=== PATIENT | male | born 1980 | race Caucasian/White ===

== ENCOUNTER 2021-09-23 08:40 | Emergency (ER) | payer MEDICAID, SELFPAY ==
[2021-09-23 08:48] VITALS: BP 138/90; PULSE 81; RESP 16; TEMP 36.8; O2SAT 98
--- NOTE | 2021-09-23 09:15 | DI.RAD_ITS ---
Exam(s) XR LUMBAR SPINE COMPLETE EXAM: XR LUMBAR SPINE COMPLETE CLINICAL HISTORY: Low back pain. TECHNIQUE: 2D digital imaging was performed. COMPARISON: No exams were available for comparison FINDINGS: Five views There is no evidence fracture listhesis. No pars defects. Mild disc space narrowing on the right si de of L4-5 level is noted Facet joints unremarkable. Sacroiliac joints unremarkable. No scoliosis. No osseous lesions and du ne density is normal. IMPRESSION: Subtle evidence of degenerative disc disease at L4-5 level. No facet arthropathy evident. Surgical clips are noted on the right side are possibly from prior appendectomy. DATA REPOSITORY: RADIATION DOSE DELIVERED:
--- NOTE | 2021-09-23 09:23 | W.ED.GENAD ---
Discharge Plan Disposition Patient Disposition: HOME Condition: Stable Discharge Details Clinical Impression: Strain of lumbar paraspinous muscle Primary Care Provider: Paige Ballard ED Provider: Julianna Baumann Home Meds and New Rx's Prescriptions: No Action acetaminophen 500 mg Tablet 1,000 mg PO Q6H PRN Discharge Instructions Instructions: Low Back Strain (ED) Additional Instructions: Take the Flexeril as directed. Up to 3 times daily as needed for muscle spasm this may make you sleepy. Alternate ice and heat. You can use lidocaine patches which you can obtain [id number]. Please take Tylenol or Ibuprofen with food every 4-6 hours as needed for pain and swelling. Follow up with primary care provider in 3-5 days to discuss possible MRI if needed. Return to ED sooner if any worsening loss of bowel or bladder, numbness tingling or concerns. Increase oral fluids. Stand Alone Forms: Work Release Referrals: Paige Ballard [Primary Care Provider] - 5 days Discharge Data Discharge Date/Time-TO BE ENTERED AT DEPARTURE: 09/23/21 11:06 Medical Decision Making 41-year-old male presents to the ER with a chief complaint of lower lumbar pain status post moving a large box yesterday. He reports that he felt a twinge. He denies any radiation of pain or numbness tingling into his lower extremities denies any saddle anesthesia. He does report previous lower back injury approximately 10 years ago denies any lumbar back surgeries. He did take a gram of Tylenol prior to arrival. Discussed x-ray results with patient. There are some degenerative changes at L4-L5. Patient denies any saddle anesthesia or red flags such as loss of bowel or bladder control. Discussed home care including ice, ibuprofen, muscle relaxers. Flexeril, lidocaine patch ordered. Patient remained in with stable condition throughout stay. Strict return instructions and follow-up care he verbalized standing given Flexeril tablets to go Prior to DC. This text was generated using [employer] system, please disregard any oddities of phrase or misspellings. Medical Records Medical records reviewed: Yes I reviewed the patient's medical records. Imaging Data Radiologic Study: Imaging: X-Ray Radiologist's impression: CLINICAL HISTORY: Low back pain. TECHNIQUE: 2D digital imaging was performed. COMPARISON: No exams were available for comparison FINDINGS: Five views There is no evidence fracture listhesis. No pars defects. Mild disc space narrowing on the right side of L4-5 level is noted Facet joints unremarkable. Sacroiliac joints unremarkable. No scoliosis. No osseous lesions and bone density is normal. IMPRESSION: Subtle evidence of degenerative disc disease at L4-5 level. No facet arthropathy evident. Surgical clips are noted on the right side are possibly from prior appendectomy. HPI General Mode of arrival: ambulatory. Date/Time Provider Initiated Documentation: 09/23/21 09:22. Limitations to Documentation: no limitations. Information obtained by: patient and RN notes reviewed. HPI Narrative: 41-year-old male presents to the ER with a chief complaint of lower lumbar pain status post moving a large box yesterday. He reports that he felt a twinge. He denies any radiation of pain or numbness tingling into his lower extremities denies any saddle anesthesia. He does report previous lower back injury approximately 10 years ago denies any lumbar back surgeries. He did take a gram of Tylenol prior to arrival. Related Data Home Medications Medication Instructions Recorded Confirmed acetaminophen 500 mg tablet 1,000 mg PO Q6H PRN 09/23/21 09/23/21 Allergies Allergy/AdvReac Type Severity Reaction Status Date / Time erythromycin base Allergy eye Unverified 09/23/21 08:51 [Erythromycin Base] irratition General Stated Complaint: Nk/Back Pain PAPITO: 4 Review of Systems All systems reviewed & are unremarkable except as noted in HPI and below Musculoskeletal Musculoskeletal: Reports as per HPI, Reports back pain, Denies deformity, Denies loss of height, Reports numbness, Denies radiating pain into limb, Reports stiffness and Denies tingling Integumentary/Breasts Skin/Breast: Reports other Neurologic Neurologic: Reports numbness and Denies tingling [facility] All Active Problems (Updated 09/23/21 @ 10:53 by Julianna Baumann) Strain of lumbar paraspinous muscle (Acute) Family History (Updated 09/24/21 @ 09:25 by Ellen Muller) Mother , 53 Alcohol use disorder Father No problems noted. Sister No problems noted. Brother No problems noted. Brother No problems noted. Brother No problems noted. Maternal Grandfather No problems noted. Paternal Grandfather No problems noted. Social History (Updated 09/24/21 @ 09:24 by Ellen Martinez Smoking/Tobacco Use Status: Never Second Hand Exposure: Yes Smoking risk assessment performed?: Yes Alcohol Intake: current Alcohol Intake frequency: a few times a month Alcohol type: beer and hard liquor Drug use: Rarely Substance use type: marijuana Caregiver/Support person: No Household members: spouse and children Communication Needs: None Do you need help understanding health information?: Rarely Pets and animals: Yes Pets and animals: cat(s) and dog(s) Sexually active: Yes Do you think of yourself as: straight/heterosexual Current gender identity: male What is your relationship status?: How often do you talk on the phone with friends or family?: once per week How often do you get together with friends or relatives?: once per week Do you belong to any clubs or organized social groups?: no Panel score (0-1 are the most socially isolated patients): 1 What type of physical activity do you participate in: walking and bicycling Duration: 30-45 minutes/day Frequency: 1-2 times per week Special paris needs: No Seatbelt use: always Helmet use: Yes Helmet use: always Drive intox 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 Appears stated age. Normal body habitus. Head: Normocephalic, no trauma. Chest: RRR, Normal S1, S2, distal pulses intact. Resp: Lungs clear to auscultation bilaterally, no wheezes, rales, or rhonchi. Abdomen: Soft, non-distended, Normoactive bowel sounds all 4 quads. Musculoskeletal: Stiff gait, 5/5 strength to all four extremities. Says have some bilateral lower lumbar paraspinous tenderness to palpation. Skin: No suspicious rashes or lesions. Capillary refill less than 2 sec. does have a birthmark noted to lower mid back. Neurologic: Cranial nerves II-XII intact. Alert and oriented x 3. Motor: No deficits noted. Sensory: Intact bilaterally all 4 extremities. Reflexes: DTR's intact bilaterally.. Hematologic/Lymphatic: No ecchymosis, no lymphadenopathy. Course Vital Signs Vital signs: Vital Signs Temperature 36.8 C 09/23/21 08:48 Pulse 81 09/23/21 08:48 Respiratory Rate 16 09/23/21 08:48 Blood Pressure 138/90 09/23/21 08:48 Pulse Oximetry 98 09/23/21 08:48 Temperature 36.8 C 09/23/21 08:48 Temperature Source Oral 09/23/21 08:48 Pulse 81 09/23/21 08:48 Respiratory Rate 16 09/23/21 08:48 Blood Pressure 138/90 09/23/21 08:48 Blood Pressure Position Sitting 09/23/21 08:48 Pulse Oximetry 98 09/23/21 08:48 Oxygen Delivery Method Room Air 09/23/21 08:48 Oxygen Flow Rate 0 09/23/21 08:48 Pain Level 7 09/23/21 08:48
[2021-09-23] MEDS: Cyclobenzaprine 10 MG TAB, 3 TABS/BTL PO (11:06)
[2021-09-23] MEDS: Ibuprofen 600 MG TAB PO (11:06)
[2021-09-23] MEDS: Lidocaine 5% Patch 1 PATCH TP (11:07)
== END 2021-09-23 11:06 | disposition home or self-care (01) ==
PROVIDERS: Emergency Provider Registered Nurse Emergency; PCP Nurse Practitioner Family
DX: S39.012A Strain of muscle, fascia and tendon of lower back, initial encounter (principal); X50.0XXA Overexertion from strenuous movement or load, initial encounter; Y99.0 Civilian activity done for income or pay
CPT/HCPCS: 99283; 72110

== ENCOUNTER 2022-07-30 03:42 | Outpatient (CLI) | payer MEDICAID, SELFPAY ==
[2022-07-30 13:00] LABS: ALT 40 U/L (16-63); AST 18 U/L (15-37); Albumin 4.1 g/dL (3.4-5.0); Alkaline Phosphatase 109 U/L (46-116); Anion Gap 6.1 mmol/L (3-11); BUN 21 mg/dL (7-18); Bilirubin, Total 0.4 mg/dL (0.2-1.0); CO2 29.9 mmol/L (21.0-32.0); CREATININE 0.9 mg/dL (0.70-1.30); Calcium 9.3 mg/dL (8.5-10.1); Calculated LDL 146 mg/dL (<100); Chloride 106 mmol/L (98-107); Cholesterol 210 mg/dL (<200); Estimated GFR 110.73 (mL/min/1.73m2); Glucose 111 mg/dL (74-106); HDL Cholesterol 35 mg/dL (40-60); Potassium 4.5 mmol/L (3.5-5.1); Sodium 142 mmol/L (136-145); Total Protein 7.4 g/dL (6.4-8.2); Triglyceride 145 mg/dL (<150)
== END 2022-07-30 03:43 | disposition home or self-care (01) ==
LOC: LOS 03:42
PROVIDERS: PCP Nurse Practitioner Family; Visit Provider Nurse Practitioner Family
DX: Z13.220 Encounter for screening for lipoid disorders (principal); Z00.00 Encounter for general adult medical examination without abnormal findings
CPT/HCPCS: 36415; 80053; 80061

== ENCOUNTER 2022-10-15 09:40 | Outpatient (CLI) | payer MEDICAID, SELFPAY ==
--- NOTE | 2022-10-15 12:26 | DI.RAD_ITS ---
Exam(s) XR KNEE LT 3V AP,LAT,CARLOS EXAM: XR KNEE LT 3V AP,LAT,CARLOS CLINICAL HISTORY: constant atraumatic painx 2 weeks M25.562 PAIN LEFT KNEE. TECHNIQUE: 2D digital imaging was performed. Three views. COMPARISON: No exams were available for comparison FINDINGS: BONES: No acute fracture is present. No bony destructive lesion is seen. JOINTS: The knee is normally aligned. No joint effusion is seen. SOFT TISSUE: Normal. IMPRESSION: Normal radiographs of the left knee. DATA REPOSITORY: RADIATION DOSE DELIVERED:
== END 2022-10-15 10:00 ==
LOC: DI 09:40
PROVIDERS: PCP Nurse Practitioner Family; Visit Provider Nurse Practitioner Family
DX: M25.562 Pain in left knee (principal)
CPT/HCPCS: 73562

== ENCOUNTER → 2023-05-11 09:01 | Outpatient (CLI) | payer MEDICAID, SELFPAY ==
--- NOTE | 2023-05-11 09:00 | DI.RAD_ITS ---
Exam(s) XR HIP LT COMPLETE AP PELVIS EXAM: XR HIP LT COMPLETE AP PELVIS CLINICAL HISTORY: left hip pain, M25.552. TECHNIQUE: 2D digital imaging was performed. COMPARISON: No exams were available for comparison FINDINGS: There is no evidence of pelvic nor hip fracture., there are findings in the left femoral head which a re suspicious for avascular necrosis/osteonecrosis. There is no loss of the head architecture at thi s time. No joint space narrowing in either hip. Right hip appears unremarkable. 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 Recommend follow-up hip MRI [facility] for confirmation and to determine if there is any suggestion of osteonecrosis of the opposite-rig ht hip (which is not seen on plain radiographs). DATA REPOSITORY: RADIATION DOSE DELIVERED:
== END ==
PROVIDERS: PCP Nurse Practitioner Family; Visit Provider Family Medicine
DX: M87.052 Idiopathic aseptic necrosis of left femur (principal)
CPT/HCPCS: 73502

== ENCOUNTER → 2023-05-12 10:40 | Outpatient (CLI) | payer MEDICAID, SELFPAY ==
--- NOTE | 2023-05-12 10:15 | DI.MRI_ITS ---
Exam(s) MR LOWER JOINT LT WO EXAM: MR LOWER JOINT LT WO CLINICAL HISTORY: avascular necrosis of hip on xray,M87.00 TECHNIQUE: Multiplanar multisequence MRI of Pelvis was performed COMPARISON: CR XR LUMBAR SPINE COMPLETE from 09/23/2021 CR XR HIP LT COMPLETE AP PELVIS from 05/11/2023 FINDINGS: Bones: There is an area of linear low signal extending through the superior aspect of the left femora l head. There is mild adjacent marrow edema. There is no evidence of collapse clear of the femoral head. Joints: A small joint effusion is present. The SI joints and symphysis pubis are unremarkable. Tarl ov cysts noted in lower sacrum.. Musculotendinous structures: Musculotendinous structures demonstrate no abnormality. Intrapelvic structures demonstrate no significant abnormality. IMPRESSION: Findings consistent with avascular necrosis of the left femoral head without collapse. DATA REPOSITORY:
== END ==
PROVIDERS: PCP Nurse Practitioner Family; Visit Provider Family Medicine
DX: M87.052 Idiopathic aseptic necrosis of left femur (principal)
CPT/HCPCS: 73721

== ENCOUNTER 2023-05-17 19:04 | Outpatient (CLI) | payer MEDICAID, SELFPAY ==
[2023-05-17 10:28] LABS: HCT 47.6 % (40.0-50.0); HGB 15.9 g/dL (13.5-17.5); MCH 30.1 pg (27.0-33.0); MCHC 33.4 % (32.0-36.0); MCV 90 fL (80-95); Platelet Count 242 10^3/uL (130-400); RBC 5.28 10^6/uL (4.36-5.78); WBC 8.26 10^3/uL (4.4-10.8)
[2023-05-17 10:42] LABS: Anion Gap 4.7 mmol/L (3-11); BUN 17 mg/dL (7-18); CO2 31.3 mmol/L (21.0-32.0); CREATININE 0.9 mg/dL (0.70-1.30); Calcium 9.3 mg/dL (8.5-10.1); Chloride 104 mmol/L (98-107); Estimated GFR 110.04 (mL/min/1.73m2); Glucose 111 mg/dL (74-106); Potassium 4.3 mmol/L (3.5-5.1); Sodium 140 mmol/L (136-145)
== END 2023-05-17 19:05 | disposition home or self-care (01) ==
LOC: LBO 19:04
PROVIDERS: PCP Nurse Practitioner Family; Visit Provider Student in an Organized Health Care Education/Training Program
DX: Z01.818 Encounter for other preprocedural examination
CPT/HCPCS: 36415; 80048; 85027

== ENCOUNTER 2023-05-19 08:31 | Day surgery (SDC) | payer MEDICAID, SELFPAY ==
[2023-05-19] VITALS (10 sets, daily range): BP systolic 126–189; BP diastolic 72–101; PULSE 43–65; RESP 14–18; TEMP 36.2–36.6; O2SAT 96–99; BMI 25.1
[2023-05-19] MEDS: Lactated Ringers 1,000 ML 80 ML IV (09:33)
[2023-05-19] MEDS: Acetaminophen 500 MG TAB 1000 MG PO ×2 (09:38→15:01)
[2023-05-19] MEDS: Celecoxib 200 MG CAP 400 MG PO (09:38)
--- NOTE | 2023-05-19 09:57 | ANES.PREOP_ITS ---
General Info Date of Service Date Performed: 05/19/23 Height: 5 ft 7 in Weight: 72.8 kg Body Mass Index (BMI): 25.1 Surgical Procedure: Operation Date: 05/19/23 11:05 Proposed Procedure Side Surgeon p Hip Total Hip Anterior Left Francisco Hicks MD Meds Allergies and Home Medications Allergies Allergy/AdvReac Type Severity Reaction Status Date / Time erythromycin base Allergy eye Verified 05/19/23 08:57 [Erythromycin Base] irratition Home Medication Medication Instructions Recorded acetaminophen 500 mg tablet 1,000 mg PO Q6H PRN 09/23/21 omeprazole 20 mg capsule,delayed 20 mg PO DAILY #90 caps 05/11/23 release Current Visit Medications: Current Medications Generic Name Dose Route Start Last Admin Trade Name Freq PRN Reason Stop Dose Admin Acetaminophen 1,000 mg 05/19/23 06:00 05/19/23 09:38 Acetaminophen 500 Mg Tab PO 05/19/23 16:00 1,000 mg PREOP JOSE M Administration Acetaminophen 1,000 mg 05/19/23 07:34 Acetaminophen 500 Mg Tab PO 06/18/23 07:33 TID PRN PRN Analgesia Celecoxib 400 mg 05/19/23 06:00 05/19/23 09:38 Celecoxib 200 Mg Cap PO 05/19/23 16:00 400 mg PREOP JOSE M Administration Docusate Sodium 100 mg 05/19/23 07:34 Docusate Sodium 100 Mg Cap PO 06/18/23 07:33 BID PRN PRN Constipation Tranexamic Acid 1,000 mg/ 60 mls @ 360 mls/hr 05/19/23 06:00 Sodium Chloride IV 05/19/23 16:00 PREOP JOSE M Ringer's Solution 1,000 mls @ 80 mls/hr 05/19/23 06:00 05/19/23 09:33 IV 05/19/23 23:59 80 mls/hr INFUSION JOSE M Administration Cefazolin Sodium/Dextrose 2 gm in 50 mls @ 100 mls/hr 05/19/23 06:00 Ancef Duplex IVPB 05/19/23 23:59 PREOP JOSE M IV Miscellaneous Supplies 1 each 05/19/23 06:00 Iv Access IV 05/19/23 23:59 DIRECTED JOSE M Ondansetron HCl 4 mg 05/19/23 07:34 Ondansetron 4 Mg/2 Ml Vial IVP 06/18/23 07:33 Q6H PRN PRN Nausea Oxycodone HCl 0 mg 05/19/23 07:34 Oxycodone 5 Mg Tab PO 06/18/23 07:33 Q3H PRN PRN Pain Polyethylene Glycol 17 gm 05/19/23 07:34 Polyethylene Glycol 3350 17 Gm Packet PO 06/18/23 07:33 BID PRN PRN Constipation Sodium Chloride 0 ml 05/19/23 06:00 Normal Saline Flush 10 Ml Syr IV 05/19/23 23:59 PRN PRN Sodium Chloride 0 ml 05/19/23 06:00 Normal Saline 10 Ml Vial IJ 05/19/23 23:59 DIRECTED PRN Sterile Water 0 ml 05/19/23 06:00 Water,Injection,Sterile 10 Ml Vial IJ 05/19/23 23:59 DIRECTED PRN PFSH Active Problems Active Problems: Problem Status Onset Code Avascular necrosis of bone of left hip M87.052 Left hip pain M25.552 Left knee pain M25.562 Acid reflux K21.9 Low back pain M54.50 Sebaceous cyst L72.3 Medical History Medical History Lumbar strain Depression Acute reaction to situational stress Acute left lumbar radiculopathy Tobacco Smoking/Tobacco Use Status: Never Passive smoking exposure: Yes Second hand exposure: Yes Alcohol Alcohol Intake: current Alcohol intake frequency: holidays/special occasions only Alcohol type: beer and hard liquor Substance Use Substance use: Daily Substance use type: marijuana Details: Marijuana smoker daily 20 plus years. Vital Signs and Lab Results Vital Signs Most Recent Vital Signs in EMR: Most Recent Vital Signs Temp Pulse Resp BP Pulse Ox 36.6 C 57 L 16 134/88 98 05/19/23 09:04 05/19/23 09:04 05/19/23 09:04 05/19/23 09:04 05/19/23 09:04 Lab Results Blood Type / Crossmatch: No Data to Display Complete Blood Count: White Blood Count 8.26 10^3/uL (4.4-10.8) 05/17/23 10:25 Red Blood Count 5.28 10^6/uL (4.36-5.78) 05/17/23 10:25 Hemoglobin 15.9 g/dL (13.5-17.5) 05/17/23 10:25 Hematocrit 47.6 % (40.0-50.0) 05/17/23 10:25 Platelet Count 242 10^3/uL (130-400) 05/17/23 10:25 Complete Metabolic Panel: Sodium 140 mmol/L (136-145) 05/17/23 10:25 Potassium 4.3 mmol/L (3.5-5.1) 05/17/23 10:25 Chloride 104 mmol/L (98-107) 05/17/23 10:25 Carbon Dioxide 31.3 mmol/L (21.0-32.0) 05/17/23 10:25 BUN 17 mg/dL (7-18) 05/17/23 10:25 Creatinine 0.9 mg/dL (0.70-1.30) 05/17/23 10:25 Est GFR (CKD-EPI 2020) 110.04 (mL/min/1.73m2) 05/17/23 10:25 Calcium 9.3 mg/dL (8.5-10.1) 05/17/23 10:25 Glucose 111 mg/dL (74-106) H 05/17/23 10:25 Liver Function Panel: No Data to Display Coagulation Panel: No Data to Display Cardiac Panel: No Data to Display Arterial Blood Gas: No Data to Display Venous Blood Gas: No Data to Display Pancreas Panel: No Data to Display Thyroid Panel: No Data to Display Infectious Disease: No Data to Display Blood Cultures: 2 No Data to Display Toxicology Panel: No Data to Display Imaging and Studies Imaging and Studies Study information below may be from another EMR and interpreted by another provider. Please see original notes in EMR for more complete details. Other Study Summary:: MRI and lumbar spine xray reviewed and results in chart Anesthesia Assessment and Plan Anesthesia History Personal History: No History of Anesthesia Complications Family History: No Family History of Anesthesia Complications Exercise Tolerance Exercise Tolerance: Metabolic Equivalents>4 Pertinent Negatives Pertinent Negatives: No Major Cardiovascular Symptoms or Complaints, No Major Pulmonary Symptoms or Complaints and No History of CVA/TIA Cardiac & Pulmonary Exam Cardiac Exam: Normal S1/S2 Heart Sounds Pulmonary Exam: Clear Bilateral Breath Sounds Implantable Cardiac Device Does patient have a Pacemaker or an ICD?: No Airway Exam Known Difficult Airway: No Mallampati Class: 3 Mouth Opening: Narrow (< 3cm) Thyromental Distance: Greater than 3 cm Neck Range of Motion: Full ROM Neck Circumference: Normal Teeth Condition: Generalized Poor Dentition (multiple missing teeth per pt and some rotten teeth per pt) ASA Classification ASA Score: ASA 2 Emergency Case?: No NPO Status NPO Status: NPO Clears >2 hours, Solids >8 hours Anesthesia Plan Resuscitation Status: Full Code Anesthesia Technique: Spinal Anesthesia Airway Planned: Natural Airway Monitors Used: Standard Monitors
--- NOTE | 2023-05-19 11:38 | W.PM.DSUDISC ---
Date of service: 05/19/23 Time of Service: 11:38 Discharge Plan Disposition Patient Disposition: Home Condition: Good Discharge Details Reason For Visit: L THR Attending Provider: Francisco Hicks Primary Care Provider: Babar Camacho Home Meds and New Rx's Prescriptions: New acetaminophen 500 mg tablet 1,000 mg PO TID Qty: 90 3RF aspirin 81 mg tablet,delayed release (DR/EC) 81 mg PO BID Qty: 60 0RF celecoxib 200 mg capsule 200 mg PO BID Qty: 60 0RF dexamethasone 4 mg tablet 4 mg PO DAILY Qty: 2 0RF oxycodone 5 mg tablet 5 mg PO Q4H MDD 6 tabs PRN (Reason: pain) Qty: 20 0RF Continued omeprazole 20 mg capsule,delayed release(DR/EC) 20 mg PO DAILY Qty: 90 1RF Discontinued acetaminophen 500 mg Tablet 1,000 mg PO Q6H PRN Discharge Instructions Additional Instructions: Total Hip Discharge Instructions Activity: The most important activity is to walk. You should try to take short walks a few times a day. You have no restrictions on movement or positioning, but do not try to force what you do. You will find some stiffness and weakness with hip flexion (lifting your knee). Do not try to strengthen this too early, continue to practice walking and stairs and this will come. - Outpatient physical therapy can be helpful to help return you to a normal gait and improve your flexibility and strength. This can start around 2 weeks. For some patients, it?s not necessary. Usually this is determined at the time of discharge or at the first post-operative visit. - You should wear the RUBY hose on both legs for 2 weeks. Dressing: Keep the surgical dressing in place for at least one week. After the first week it may be removed and replace with light gauze and tape or nothing. It may get wet after 3 days but avoid soaking the dressing. If it gets wet, just lightly pat dry. It is important to always keep some gauze between skin folds, especially when you are sitting. Spend some time with the wound exposed when you are lying flat as the incision does wrinkle onto itself. Medications: - You should take Tylenol and an anti-inflammatory Celebrex as your primary pain control medications. If the Celebrex is too expensive or not covered, please call the office for another alternative (Advil/Ibuprofen or Naproxen/Aleve). - You have been prescribed a stronger pain medication Oxycodone for breakthrough pain, take as needed as prescribed. - You will continue your omeprazole to help reduce stomach acid and reflux. - You have also been prescribed Decadron to help with post-operative nausea and pain. You will take this for two days starting tomorrow. - You will be taking [Aspirin 81mg twice a day] for DVT prevention unless instructed otherwise. - If you have constipation you should take Colace or Miralax (both [id number]). It takes most people 3-4 days to have a bowel movement. Follow-up: 2 weeks If you have any acute concerns or questions, please do not hesitate to contact the office at [phone]. You may contact Dr. Hicks with any questions after hours through the hospital at [phone] or on his cell phone at [phone]. Referrals: Francisco Hicks MD [ [facility] STAFF PHYSICIAN] - Equipment/Supplies: Walker Activity:: Activity as Tolerated Shower/Bathe:: 72 hours Diet:: As Tolerated DS: Diagnosis Discharge Diagnosis (1) Avascular necrosis of bone of left hip: Status: Acute
[2023-05-19] MEDS: ceFAZolin 2 GM/50 ML BAG IVPB (11:51)
--- NOTE | 2023-05-19 13:05 | DI.RAD_ITS ---
Exam(s) XR HIP LT IN OR EXAM: XR HIP LT IN OR CLINICAL HISTORY: AVASCULAR NECROSIS LEFT HIP. TECHNIQUE: 2D and realtime digital imaging was performed. COMPARISON: CR XR HIP LT COMPLETE AP PELVIS from 05/11/2023 FINDINGS: Hard copy image shows placement a left hip prosthesis. The alignment appears satisfactory. Please see procedure note for details. Fluoro time: 27.4seconds RADIATION DOSE DELIVERED: Ka,r=2.46 mGy
[2023-05-19] MEDS: fentaNYL 100 MCG/2 ML VIAL IVP (13:39)
--- NOTE | 2023-05-19 13:40 | W.PM.OP ---
Date of service: 05/19/23 Time of Service: 12:00 Operative Note Operative Note DATE OF PROCEDURE: 05/19/23 PRE-OP DIAGNOSIS: Left Hip Avascular Necrosis POST-OP DIAGNOSIS: same PROCEDURE: Left Anterior Total Hip Arthroplasty with Intraoperative Navigation SURGEON: Francisco Hicks [employer] PRO[employer] COORDINATOR: Tong Clemons ANESTHESIA TYPE: Spinal Refer to Anesthesia Record ESTIMATED BLOOD LOSS: 150 PATHOLOGY: none sent TOURNIQUET TIME: 0 COMPLICATIONS: None Patient was transported to: PACU Patient's condition: stable Implants: 1. Depuy Closter Acetabular Component, 56mm 2. Depuy Acetabular Liner, [id number] 3. Depuy Actis High Offset Collared Femoral Stem, Size 6 4. Depuy Altrx Ceramic Femoral Head, Size 36+5mm Indications: I have seen Bhaskar in clinic for symptoms of hip arthritis, confirmed with radiographic findings. He has exhausted nonoperative methods and was having significant limitations in daily function and desired better function and less pain. I discussed the technical details of a hip replacement. I explained the risks of the procedure to include, but not limited to, bleeding, infection, pain, stiffness, fracture, damage to nerves and vessels, damage to muscles and tendons, loosening, instability, leg length inequality, need for repeat procedure, blood clot and cardiopulmonary demise. Despite these risks, Bhaskar elected to proceed. Findings: Softened subchondral bone of the weight-bearing portion of the femoral head with dense scloerosis underlying it. Procedure Description: Bhaskar was greeted in the preoperative holding area where the correct side was identified and marked. The consent was reviewed with the patient and signed. The history and physical was updated. All questions were answered. He was taken back to the operating room. A spinal anesthestic was then administered. The feet were wrapped with cast padding and Coban and then placed into the boot liners and then into the boots. Care was taken to protect the skin and make sure the heels were fully down and the boots were stable. The patient was then positioned onto the HANA table. Both legs were held in a neutral position. SCDs were applied. The patient was then slid down onto a peroneal post. Prophylactic antibiotics in the form of Cefazolin were administered. 1g of Tranxemic Acid was given intravenously within 30 minutes of incision. The left leg was then prepped with Chloraprep and draped in a standard fashion. A second prep with Chloraprep was performed prior to placement of a shower-curtain type drape with Iodine impregnated skin protection. A timeout to confirm correct identity, side and site, procedure, allergies, anesthesia, and medical concerns was performed. An obliquely oriented incision was made starting lateral to the ASIS and running distal over the Tensor Fascia Angeles (TFL) muscle belly toward the fibular head, approximately 10cm. The skin and soft tissue was dissected sharply, through Vamshi?s fascia, and to the fascia of the TFL. With the fascia and superior border of the IT band identified, the fascia was incised with a new knife just above any perforators from the IT band. The TFL muscle belly was bluntly dissected away from the fascia and moved laterally. The fat between TFL and rectus was identified to ensure the dissection was not within the TFL. Blunt dissection created space between abductors and the capsule and retractor was placed over the lateral femoral neck. The fibers of the rectus femoris tendon were identified and these were freed from the anterior capsule. A second cobra retractor was placed around the medial femoral neck. The TFL was further retracted laterally to show the deep fascia. Careful dissection through this layer identified three main crossing vessels of the lateral femoral circumflex. These were cauterized in multiple locations and then cut without any noticeable bleeding. The TFL was further released bluntly from the deep fascia to expose anterior hip capsule and fat The Epi orthopaedic retractor was then placed beneath the TFL and against sartorius and medial soft tissues to protect and retract the soft tissues. A T-capsulotomy was then performed starting at the superior lateral acetabulum and moving distally to the intertrochanteric ridge. These capsular flaps were tagged with a No. 1 Ethibond and elevated from within. The capsular flaps were released to the shoulder of the lateral neck and to the lesser trochanter to give excellent visualization of the proximal femur. A neck osteotomy was performed using an oscillating saw based on preoperative templates. This cut started in the shoulder and of the lateral neck and exited medially. The saw was at all times directed medially to avoid injury to the greater trochanter. Gross traction was applied to the leg and the osteotomy opened. The femoral head was removed with a corkscrew, making sure to protect the TFL on its exit. Traction was released after head removal. This was measured on the back table to determine the starting reamer size. Portions of the rectus obscuring visualization were minimally elevated off the superior acetabulum. An anterior retractor was placed over the anterior wall between capsule and labrum and attached to the Gripper retraction system. The femur was rotated to 90 degrees and medial capsule was fully released until the lesser trochanter was palpable and visible; the femur was returned to 30 degrees. A posterior retractor was placed similarly between capsule and labrum. This provided excellent visualization. The contents of the cotyloid fossa were removed with electrocautery and the labrum was removed with a knife. Acetabular reaming began with a 48mm reamer. This first reaming was directed anterior to posterior and medial to get down to the true floor. This was inspected and reamed until the true floor was reached. The anterior retractor was then released and entry and exit was provided by traction on the capsular flaps. I then reamed sequentially up to a 56mm reamer where good fit was obtained. The larger reamers were oriented based on anatomical reference of the anterior and lateral temple to ensure proper abduction and anteversion. Positioning and size was confirmed with the fluoroscopy. A 56mm Depuy Closter acetabular component was selected. The acetabulum was reamed around the periphery with the selected acetabular size to prevent a rim fit. The deep tissues were irrigated. The acetabular component was then impacted in a position of about 40-45 degrees of abduction and 15-20 degrees of anteversion, using the patient?s anatomy as the ultimate landmark. Fluoroscopy was used to confirm this. There was excellent door manager of the acetabular component and the inserting handle was removed. The acetabular liner, Depuy [id number] polyethylene liner, was inserted and lined up with the tines of the acetabular component. There was no soft tissue interposition. The liner was then impacted into position and confirmed to be well-seated. A portion of the antonia-articular cocktail was then injected around the acetabulum into the capsule and periosteum. This cocktail consisted of 123mg of Ropivacaine, 0.25mg of Epinephrine, 0.04mg of Clonidine, and 15mg of Ketorolac, diluted to 50cc. The leg was rotated to 120 degrees. Any remaining medial capsule was released until the lesser trochanter was easily palpable. A retractor was placed medially. The lateral capsule was further released into the shoulder to allow access to the greater trochanter. A Eason retractor was placed over the greater trochanter which allowed the trochanter to flip in front of the capsule for excellent exposure. The leg was brought down into maximal extension and 20 degrees of adduction while ensuring there was no impingement on the acetabulum. Any remnant capsule within the trochanter was released. Piriformis and obturator externis were identified and protected. There was excellent access to the proximal femur. The lateral neck remnant was removed with a rongeur. A blunt canal probe was used to identify the canal and trajectory for later broaching. A box osteotome initiated the broach course. A small curved rasp and a curved curette were used to work laterally. Broaching then began with a starter Actis broach. This was inserted manually around the trochanter and into the canal before mallet blows. The broach was seated to a few millimeters below the cut level based on the neck cut and the preoperative template. Sequential broaching was continued with the Gnodal pneumatic broaching device until a tight fit was obtained with good rotational control of the femur. A trial standard neck was inserted along with a +5 trial head. The leg was brought out of extension and adduction and then reduced with traction and internal rotation. The leg was stable anteriorly in a position of 30 degrees of extension and 90 degrees of external rotation. Fluoroscopy was used to ensure there was no fracture and the stem was seated well. Leg lengths were checked with an AP pelvis and pelvic reference points. Ticket[employer]uit navigation system was used to confirm appropriate positioning and leg length and offset. Once content with the desired offset and leg lengths, the leg was brought back into extension, external rotation and adduction. The periosteum and surrounding tissue was injected with remaining portion of the antonia-articular cocktail. The proximal femur was irrigated as well as the deep tissues. The Depuy Actis High Offset collared stem, size 6, was then manually inserted into the proximal femur making sure to control rotation. It was then malleted into position with light blows, giving breaks to allow bone expansion and decrease risk of fracture. The selected Depuy Altrx Ceramic Head, size 36+5mm, was then placed onto the clean and dry trunnion and secured with impaction onto the tapered fit. The leg was brought back out of extension and adduction and reduced with traction and internal rotation. Stability was confirmed with no shuck at 90 degrees of external rotation and 30 degrees of extension. No impingement through range of motion arc. Final x-ray images were obtained with fluoroscopy to confirm adequate positioning and no intraoperative fracture. The deep tissues were thoroughly irrigated with Surgiphor, betadine solution. This was allowed to sit in the wound for 3 minutes before being thoroughly irrigated out with normal saline. The capsule was then reapproximated with the previously placed Ethibond sutures. The TFL fascia was finally closed with a No. 2 Stratafix, barbed suture. Deep tissues were then reapproximated with 0 Vicryl and a running 2-0 Vicryl. The skin was closed with a running 4-0 Monocryl in a subcuticular fashion. This was reinforced with skin glue. A Mepilex silver dressing was applied. At the end of the case, all counts were correct. Bhaskar was transferred to the hospital bed without difficulty and suffering no apparent complication. Bhaskar has a good prognosis. Physical therapy will start today and without restrictions, weight-bearing as tolerated. Aspirin 81mg BID will be used for DVT prophylaxis.
--- NOTE | 2023-05-19 14:50 | W.ANESPOSTOP ---
Postoperative Evaluation Date, Time and Location Date Performed: 05/19/23 Time Performed: 14:53 Patient Location: Day Surgery Unit Vital Signs Most Recent Imported Vital Signs: Most Recent Vital Signs Temp Pulse Resp BP Pulse Ox 36.6 C 50 L 18 162/96 H 99 05/19/23 14:26 05/19/23 14:26 05/19/23 14:26 05/19/23 14:26 05/19/23 14:26 Pain Score Most Recent Pain Score: Most Recent Pain Score Pain Level 5 05/19/23 14:26 Assessment Mental Status: Awake (Alert & Oriented to Patient Baseline) Airway and Respiratory Function: Patent airway with normal (patient baseline) respiratory exam Cardiovascular Function: Hemodynamically Stable Hydration Status: Adequately Hydrated Nausea & Vomiting: No Nausea or Vomiting Pain: Pt. Denies Any Pain Peripheral Nerve Block: Patient did not receive a nerve block
--- NOTE | 2023-05-19 15:00 | IN_ITS ---
PT Notes Visit Reasons: L THR Physical Therapy Day Surgery Initial Evaluation Date: 05/19/2023 Referring Doctor: AGUILAR Arndt PT Orders: PT CONSULT: S/p Ortho Surgery Precautions: WBAT on left LE with AD. 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 PMHX: All Active Problems (Updated 05/17/23 @ 13:05 by Francisco Hicks MD) Avascular necrosis of bone of left hip (Acute) Left hip pain (Acute) Left knee pain (Acute) Acid reflux (Chronic) Low back pain (Acute) Sebaceous cyst (Acute) Medical History Lumbar strain Depression Acute reaction to situational stress Acute left lumbar radiculopathy Social History/Home Situation: Lives with in a private home with 2 steps to enter without rails but patient can hold onto door frame and furniture for support on B sides. Independent with all aspects of ADLs prior to surgery almost although has had increasing difficulty with ADL performance due to pain and worsening left hip issue. Equipment Owned/DME: None Subjective: Reports 4/10 pain in the left hip at rest and with movement. Denies headache, chest pain, and lightheadedness throughout session. Objective: General Observation: Seated on bedside recliner. Mepilex Ag over surgical incision. TEDS to bed to be legs. present in room throughout session. Mental Status: A &O x 4 Pain: As above ROM: Right Lower Extremity: Hip flexion WFL. Hip abduction WFL. Knee flexion WFL. Ankle dorsiflexion WFL. Ankle plantarflexion WFL. Left Lower Extremity: Hip flexion WFL. Hip abduction WFL. Knee flexion WFL. Ankle dorsiflexion WFL. Ankle plantarflexion WFL. Strength: Right Lower Extremity: Hip flexors 5/5. Hip abductors 5/5. Knee flexors 5/5. Knee extensors 5/5. Ankle dorsiflexors 5/5. Ankle plantarflexors 5/5. Left Lower Extremity:Hip flexors 4-/5. Hip abductors 4-/5. Knee flexors 5/5. Knee extensors 4-/5. Ankle dorsiflexors 5/5. Ankle plantarflexors 5/5. Sensation: Intact as to pain and light pressure in BLE Bed Mobility/Transfers: Minimal cueing provided for use of B hands as needed for support, movement sequence, AD management, and posture to reduce fall risk and minimize pain report Sit to stand standby assist with FWW Stand to sit standby assist with FWW Bed to chair standby assist with FWW Gait: Facilitated safe and correct performance of level surface ambulation covering a distance of 150 feet using front wheeled walker with reciprocal step through heel-toe gait pattern requiring only standby assist and minimal cueing provided for movement sequence, AD management, and posture to reduce fall risk and minimize pain report. Stairs: Guided patient with safe and correct negotiation of 3 x 4 inch steps and 2 x 6 inch steps holding onto bilateral rails with step to gait pattern requiring standby assist only and minimal cueing provided for movement sequence, AD management, and posture to reduce fall risk and minimize pain report. Balance: Static Sitting: Normal Dynamic Sitting: Normal Static Standing: Fair Dynamic Standing: Fair Special Tests: Mobility Limitations Standardized Measure [facility] AM-PAC 6 clicks Basic Mobility Inpatient Short Form: Raw Score: 24 CMS Score: 0% Informed Consent/Education: Patient instructed in purpose of PT consult. Packet containing FLASH exercise protocol has been given to patient. Education and training on initial set of exercises that can be done at home have been completed with patient. Trained patient with correct performance of exercises below to maximize motor control, joint flexibility, soft tissue extensibility of the L hip musculature to facilitate return to independent functional mobility performance. Access Code: [email or web address] URL: [email or web address] Date: 05/19/2023 Prepared by: Jany Eid Exercises - Gluteal Sets - 1 x daily - 7 x weekly - 1 sets - 10 reps - 5 hold - Supine Heel Slide - 1 x daily - 7 x weekly - 1 sets - 10 reps - 5 hold - Supine Ankle Pumps - 1 x daily - 7 x weekly - 1 sets - 10 reps - 5 hold - Seated March - 1 x daily - 7 x weekly - 1 sets - 10 reps - 5 hold - Seated Long Arc Quad - 1 x daily - 7 x weekly - 1 sets - 10 reps - 5 hold ASSESSMENT: Patient requires the use of a front-wheeled walker for all mobility ADL performance to maximize independence and reduce fall risk. Patient presents with clinical signs and symptoms consistent with current/admitting diagnoses that have resulted to mobility limitations, gait instability, generalized weakness, and impairment of motor control as demonstrated by the following impairment level findings: 1. Decreased strength to left hip major muscle groups 2. Impaired standing balance Impairments are contributing to the following functional limitations: 1. Inability to safely ambulate without assistive device 2. Increase completion time for mobility ADL performance 3. Increased fall risk Patient is assessed as a 52790 moderate complexity based on the following: History: 42-year-old male with impairment level findings, functional limitations, and past medical history as indicated above Examination: Demonstrable impairment in strength, balance, and mobility level with underlying impairments and functional limitations as documented above Presentation: Evolving Decision Makin moderate complexity Goals: N/A. PT evaluation and 1-2 treatment sessions only for functional mobility training using recommended AD and for HEP instruction. Plan of Care/Treatment Plan: N/A. PT evaluation and 1-2 treatment session only for functional mobility training using recommended AD and for HEP instruction. DISCHARGE RECOMMENDATIONS: Home when medically cleared by orthopedic surgeon. Recommend outpatient PT services in order to optimize functional mobility outcomes and facilitate return to independent community ambulation without an assistive device. TREATMENT CODE/TIME: 27470 x 25 minutes for 1 unit beginning at 15:00 PM. Thank you for the opportunity to participate in the care of this patient. Please sign an return this page within 30 days if you agree with the above POC. Thank you! Physician Signature Date [facility] Jany Eid PT, DPT, CLT [facility] [place], [place]
== END 2023-05-19 16:07 | disposition home or self-care (01) ==
PROVIDERS: PCP Nurse Practitioner Family; Visit Provider Student in an Organized Health Care Education/Training Program
PROC: (CPT 27130; principal; 2023-05-19 10:45)
DX: M87.052 Idiopathic aseptic necrosis of left femur (principal); K21.9 Gastro-esophageal reflux disease without esophagitis; M54.50 Low back pain, unspecified; F12.90 Cannabis use, unspecified, uncomplicated
CPT/HCPCS: 27130; 20985; 97162; 73501; C1776; J0690; J1100; J2250; J2401; J2405; J2704; J3010

== ENCOUNTER 2023-06-03 11:48 | Outpatient (CLI) | payer MEDICAID, SELFPAY ==
--- NOTE | 2023-06-03 10:45 | DI.RAD_ITS ---
Exam(s) XR HIP LT COMPLETE AP PELVIS EXAM: XR HIP LT COMPLETE AP PELVIS INDICATION: 1st post op S/P L FLASH. COMPARISON: CR XR HIP LT COMPLETE AP PELVIS from 05/11/2023 MR MR LOWER JOINT LT WO from 05/12/2023 XA XR HIP LT IN OR from 05/19/2023 TECHNIQUE: 2D digital imaging was performed. Three views. FINDINGS: There has been no change in the alignment of the left hip prosthesis. No abnormal surrounding bony l ucencies. Soft tissues are unremarkable. The right hip show shows minimal degenerative changes. IMPRESSION: Stable appearance of left hip prosthesis. DATA REPOSITORY: RADIATION DOSE DELIVERED:
== END 2023-06-03 11:49 | disposition home or self-care (01) ==
LOC: DIORS 11:48
PROVIDERS: PCP Nurse Practitioner Family; Visit Provider Physician Assistant
DX: Z96.642 Presence of left artificial hip joint (principal); Z47.1 Aftercare following joint replacement surgery
CPT/HCPCS: 73502

== ENCOUNTER 2024-01-17 07:37 | Day surgery (SDC) | payer MEDICAID, SELFPAY ==
[2024-01-17] VITALS (8 sets, daily range): BP systolic 108–129; BP diastolic 70–84; PULSE 48–76; RESP 8–21; TEMP 36.2–36.7; O2SAT 99–100; BMI 25.4
--- NOTE | 2024-01-17 08:07 | W.PM.DSUDISC ---
Date of service: 01/17/24 Time of Service: 08:07 Discharge Plan Disposition Patient Disposition: Home Condition: Good Discharge Details Attending Provider: Ronaldo Jack Primary Care Provider: Babar Camacho Home Meds and New Rx's Prescriptions: No Action pantoprazole [Protonix] 40 mg tablet,delayed release (DR/EC) 40 mg PO DAILY Qty: 90 4RF sucralfate [Carafate] 1 gram tablet 1 g PO QACHS PRN (Reason: gerd symptoms ) Qty: 120 12RF ibuprofen 600 mg tablet 600 mg PO Q8H PRN Discharge Instructions Additional Instructions: FINDINGS: On upper endoscopy you have a lot of inflammation in your stomach and your esophagus. This is no surprise and we certainly had suspicion for this clinically based off of your symptoms. The question is why do you have this inflammation and the answers for that are not entirely clear. You may have a condition called H. pylori gastritis. Biopsies will show this if that is the case. There are some other potential causes for the inflammation that can be explored, as needed if the biopsy results are all negative. We should discuss in the office setting in 3-4 weeks after the pathology results come back. Activity:: Activity as Tolerated Diet:: As Tolerated
--- NOTE | 2024-01-17 08:08 | W.PM.ENDDOP ---
Date of service: 01/17/24 Time of Service: 08:08 Endoscopy Report PROCEDURE DESCRIPTION: PROCEDURES PERFORMED: 1. EGD with biopsies PREOPERATIVE DIAGNOSIS: Long?standing reflux, GERD with esophagitis POSTOPERATIVE DIAGNOSIS: Chronic gastritis, LA grade B esophagitis SURGEON: Giancarlo Jack MD INDICATION FOR PROCEDURE: 43-year-old man has long?standing acid reflux without any obvious lifestyle or dietary risk factors. He is not overweight, does not consume any significant amount alcohol or caffeine or spicy/acidic foods/drinks. FINDINGS: D2/D3 = normal D1/bulb = normal - no ulcers or inflammation Pylorus = normal Antrum = mild?moderate inflamed appearance, no maria dolores ulcers or erosions, cold forceps biopsies were taken to rule out H. pylori routinely Body = mild?moderate inflamed appearance diffusely, biopsies taken with cold forceps technique routinely Fundus = normal, no polyps Cardia = normal Hiatus = no obvious hiatal hernia but visible esophagitis is seen on retroflexion. GE junction at 37 cm has a nodular inflamed appearance without obvious ulcers but many mucosal breaks. Distal esophagus = visible grade B esophagitis. I took multiple cold forceps biopsies in and around this region. Mid esophagus = normal visually but I took cold forceps biopsies here. Proximal esophagus/hypopharynx/vocal cords = normal SURVEILLANCE-INTERVAL/FOLLOW-UP: Follow-up pathology results and discuss next?steps in the outpatient setting. I wonder if H. pylori is playing a role here. Biopsies will tell. Specimens: Yes EBL: Minimal COMPLICATIONS: None Procedure in detail: The patient gave written consent and was in agreement with the indications, the potential risks as well as the benefits of the procedure. The patient was taken to the endoscopy suite and laid on their left side. Anesthesia was given which was tolerated well. We performed a timeout and we are in agreement I started the procedure. A well-lubricated endoscope was gently and carefully advanced down the esophagus, into the stomach the scope was and through the pylorus into the duodenum. The scope was then slowly withdrawn with the above-noted findings/interventions. The patient tolerated the procedure well.
[2024-01-17] MEDS: Lactated Ringers 1,000 ML 80 ML IV (08:33)
--- NOTE | 2024-01-17 09:05 | STOM_PTH ---
PATIENT: Armaan Cohen LOC: [facility] U#:[id number] AGE/SX: 43/M ROOM: RE01/17/[address]: Ronaldo Jack : 1980 BED: DIS: 01/17/2024 SPEC #: [id number] RECD: 01/17/24 12:55 STATUS: [facility] #: [id number] AMARILYS: 01/17/24 09:[address]: Ronaldo Jack DEPT: Surgical Specimen RECD BY: Verenice Page ENTERED: 01/17/24 12:56 SP TYPE: STOMACH OTHR DR: Babar Quick DNP Tissues: 1 - STOMACH BIOPSY 2 - STOMACH BIOPSY 3 - ESOPHAGUS BIOPSY 4 - ESOPHAGUS BIOPSY Procedures: GROSS AND MICRO LEVEL 4 Comments: [id number]
--- NOTE | 2024-01-17 09:08 | W.ANESPRE ---
General Info Date of Service Date Performed: 01/17/24 Height: 5 ft 6.5 in Weight: 72.575 kg Body Mass Index (BMI): 25.4 Surgical Procedure: Operation Date: 01/17/24 09:05 Proposed Procedure Side Surgeon p Gastroscopy Ronaldo Jack MD Actual Procedure Side Surgeon p Gastroscopy Not Applicable Ronaldo Jack MD Pre-Op Diagnosis Post-Op Diagnosis ACID REFLUX Meds Allergies and Home Medications Allergies Allergy/AdvReac Type Severity Reaction Status Date / Time erythromycin base Allergy eye Verified 01/17/24 08:01 (Erythromycin Base) irratition Home Medication ?Medication ?Instructions ?Recorded pantoprazole 40 mg tablet,delayed 40 mg PO DAILY #90 tabs 06/07/23 release (Protonix) sucralfate 1 gram tablet (Carafate) 1 g PO QACHS PRN gerd symptoms 06/07/23 #120 tabs ibuprofen 600 mg tablet 600 mg PO Q8H PRN 10/08/23 Current Visit Medications: Current Medications Generic Name Dose Route Start Last Admin Trade Name Darenq PRN Reason Stop Dose Admin Ringer's Solution 1,000 mls @ 80 mls/hr 01/17/24 06:00 01/17/24 08:33 IV 01/17/24 23:59 80 mls/hr INFUSION JOSE M Administration IV Miscellaneous Supplies 1 each 01/17/24 06:00 Iv Access IV 01/17/24 23:59 DIRECTED JOSE M Sodium Chloride 0 ml 01/17/24 06:00 Normal Saline Flush 10 Ml Syr IV 01/17/24 23:59 PRN PRN Sodium Chloride 0 ml 01/17/24 06:00 Normal Saline 10 Ml Vial IJ 01/17/24 23:59 DIRECTED PRN Sterile Water 0 ml 01/17/24 06:00 Water,Injection,Sterile 10 Ml Vial IJ 01/17/24 23:59 DIRECTED PRN PFSH Active Problems Active Problems: Problem Status Onset Code Tendinitis of left hip flexor Acute M76.892 Acid reflux Chronic K21.9 Low back pain Acute M54.50 Sebaceous cyst Acute L72.3 Medical History Medical History Left hip pain Left knee pain Lumbar strain Depression Acute reaction to situational stress Acute left lumbar radiculopathy Surgical History Surgical History History of total left hip arthroplasty (05/19/23) Tobacco Smoking/Tobacco Use Status: Never Passive smoking exposure: No Second hand exposure: Yes Alcohol Alcohol Intake: current Alcohol intake frequency: holidays/special occasions only Alcohol type: beer and hard liquor Substance Use Substance use: Daily Substance use type: marijuana Vital Signs and Lab Results Vital Signs Most Recent Vital Signs in EMR: Most Recent Vital Signs Temp Pulse Resp BP Pulse Ox 36.7 C 53 L 18 129/81 99 01/17/24 08:05 01/17/24 08:05 01/17/24 08:05 01/17/24 08:05 01/17/24 08:05 Lab Results Blood Type / Crossmatch: No Data to Display Complete Blood Count: No Data to Display Complete Metabolic Panel: No Data to Display Liver Function Panel: No Data to Display Coagulation Panel: No Data to Display Cardiac Panel: No Data to Display Arterial Blood Gas: No Data to Display Venous Blood Gas: No Data to Display Pancreas Panel: No Data to Display Thyroid Panel: No Data to Display Infectious Disease: No Data to Display Blood Cultures: No Data to Display Toxicology Panel: No Data to Display Imaging and Studies Imaging and Studies Study information below may be from another EMR and interpreted by another provider. Please see original notes in EMR for more complete details. Other Study Summary:: MRI and lumbar spine xray reviewed and results in chart Anesthesia Assessment and Plan Anesthesia History Personal History: No History of Anesthesia Complications Family History: No Family History of Anesthesia Complications Exercise Tolerance Exercise Tolerance: Metabolic Equivalents>4 Pertinent Negatives Pertinent Negatives: No Major Cardiovascular Symptoms or Complaints, No Major Pulmonary Symptoms or Complaints and No History of CVA/TIA Cardiac & Pulmonary Exam Cardiac Exam: Normal S1/S2 Heart Sounds Pulmonary Exam: Clear Bilateral Breath Sounds Implantable Cardiac Device Does patient have a Pacemaker or an ICD?: No Airway Exam Known Difficult Airway: No Mallampati Class: 3 Mouth Opening: Narrow (< 3cm) Thyromental Distance: Greater than 3 cm Neck Range of Motion: Full ROM Neck Circumference: Normal Teeth Condition: Generalized Poor Dentition (multiple missing teeth per pt and some rotten teeth per pt), Loose or Chipped and Dental Caries ASA Classification ASA Score: ASA 2 Emergency Case?: No NPO Status NPO Status: NPO Clears >2 hours, Solids >8 hours (Severe GERD) Anesthesia Plan Resuscitation Status: Full Code Anesthesia Technique: Spinal Anesthesia Airway Planned: Natural Airway Monitors Used: Standard Monitors Preoperative Comments:: Planning OETT due to severe and active GERD
--- NOTE | 2024-01-17 11:13 | W.ANESPOSTOP ---
Postoperative Evaluation Date, Time and Location Date Performed: 01/17/24 Time Performed: 09:42 Patient Location: Day Surgery Unit Vital Signs Most Recent Imported Vital Signs: Most Recent Vital Signs Temp Pulse Resp BP Pulse Ox 36.2 C L 48 L 18 120/84 100 01/17/24 09:55 01/17/24 09:55 01/17/24 09:55 01/17/24 09:55 01/17/24 09:55 Pain Score Most Recent Pain Score: Most Recent Pain Score Pain Level 0 01/17/24 09:34 Assessment Mental Status: Awake (Alert & Oriented to Patient Baseline) Airway and Respiratory Function: Patent airway with normal (patient baseline) respiratory exam Cardiovascular Function: Hemodynamically Stable Hydration Status: Adequately Hydrated Nausea & Vomiting: No Nausea or Vomiting Pain: Pt. Denies Any Pain Peripheral Nerve Block: Patient did not receive a nerve block
== END 2024-01-17 10:20 | disposition home or self-care (01) ==
PROVIDERS: PCP Nurse Practitioner Family; Visit Provider Student in an Organized Health Care Education/Training Program
PROC: 0DJ68ZZ Inspection of Stomach, Via Natural or Artificial Opening Endoscopic (ICD-10-PCS; CPT 43235; principal; 2024-01-17 09:00)
DX: K21.9 Gastro-esophageal reflux disease without esophagitis; K20.90 Esophagitis, unspecified without bleeding; K29.30 Chronic superficial gastritis without bleeding
CPT/HCPCS: 43239; 00123; 88305; J1100; J2405; J2704

== ENCOUNTER 2024-05-22 15:51 | Outpatient (CLI) | payer OTHER, SELFPAY ==
--- NOTE | 2024-05-22 09:30 | DI.RAD_ITS ---
Exam(s) XR HIP LT AP LAT ONLY EXAM: XR HIP LT AP LAT ONLY CLINICAL HISTORY: ANNUAL F/U L FLASH. TECHNIQUE: 2D digital imaging was performed. Two images were obtained. AP and lateral views were ob tained. COMPARISON: CR XR HIP LT COMPLETE AP PELVIS from 06/03/2023 FINDINGS: BONES: There are stable post operative changes of a left total hip arthroplasty present. No fracture or dislocation. JOINTS: There is increased lucency between the femoral component of the prosthesis in the proximal fe mur medially. Loosening should be considered. The acetabular component is grossly unremarkable. SOFT TISSUE: Normal. IMPRESSION: Increased lucency between the femoral component in the left femur medially which may reflect loosenin g. Follow-up as clinically appropriate. DATA REPOSITORY: RADIATION DOSE DELIVERED:
== END 2024-05-22 15:52 | disposition home or self-care (01) ==
LOC: DIORS 15:51
PROVIDERS: PCP Nurse Practitioner Family; Visit Provider Student in an Organized Health Care Education/Training Program
DX: Z96.642 Presence of left artificial hip joint (principal); Z47.1 Aftercare following joint replacement surgery
CPT/HCPCS: 73502

== ENCOUNTER 2024-08-11 21:36 | Outpatient (REF) | payer OTHER, SELFPAY ==
[2024-08-11 21:24] LABS: HCT 45.5 % (40.0-50.0); HGB 15.7 g/dL (13.5-17.5); MCH 30.3 pg (27.0-33.0); MCHC 34.5 % (32.0-36.0); MCV 88 fL (80-95); MPV 10.9 fL (8.0-11.0); Platelet Count 246 10^3/uL (130-400); RBC 5.18 10^6/uL (4.36-5.78); RDW 12.7 % (11.8-14.1); WBC 6.85 10^3/uL (4.4-10.8)
[2024-08-11 21:43] LABS: BUN 15 mg/dL (7-18); Calcium 9.7 mg/dL (8.5-10.1); Chloride 105 mmol/L (98-107); Estimated GFR 96.37 (mL/min/1.73m2); Glucose 112 mg/dL (74-106); Potassium 4.1 mmol/L (3.5-5.1); Sodium 142 mmol/L (136-145); TSH (W/Ref FT4) 1.44 uIU/mL (0.36-3.74)
[2024-08-13 13:30] LABS: HIV-1/2 Ag & Ab Screen Negative (Negative)
[2024-08-14 10:45] LABS: Hepatitis C Ab w Rflx HCV PCR Negative (Negative)
[2024-08-14 11:01] LABS: HBs Antibody, Quant <3.1 mIU/mL (See Note); Hep B Surface Ab Negative (See Note); Hepatitis B Core Antibody Negative (Negative); Hepatitis B Surface Antigen Negative (Negative)
== END 2024-08-11 21:37 | disposition home or self-care (01) ==
LOC: LBN 21:36
PROVIDERS: PCP Nurse Practitioner Family; Visit Provider Nurse Practitioner Family
DX: Z11.59 Encounter for screening for other viral diseases (principal); R53.83 Other fatigue; Z11.4 Encounter for screening for human immunodeficiency virus [HIV]
CPT/HCPCS: 80048; 85027; 86704; 86706; 86803; 87340; 87389; 84443

== ENCOUNTER 2024-10-19 00:49 | Outpatient (CLI) | payer OTHER, SELFPAY ==
--- NOTE | 2024-10-19 08:00 | DI.RAD_ITS ---
Exam(s) XR LUMBAR SPINE COMPLETE EXAM: XR LUMBAR SPINE COMPLETE CLINICAL HISTORY: low back pain,M54.50. TECHNIQUE: 2D digital imaging was performed. Five views. COMPARISON: CR XR LUMBAR SPINE COMPLETE from 09/23/2021 FINDINGS: BONES: No fracture or destructive lesion. Vertebral body heights are maintained. No facet hypertrophy identified . Left hip prosthesis partially included. DISKS: Mild narrowing of the disc space on the right at L4-5 and small endplate osteophytes. Intervertebral disc spaces are maintained. ALIGNMENT: Lumbar spinal alignment is within normal limits. SOFT TISSUE: Normal surgical clips projected level right ilium. IMPRESSION: Mild degenerative disc changes at L4-5 DATA REPOSITORY: RADIATION DOSE DELIVERED:
== END 2024-10-19 01:09 ==
LOC: DI 00:49
PROVIDERS: PCP Nurse Practitioner Family; Visit Provider Nurse Practitioner Family
DX: M51.360 Other intervertebral disc degeneration, lumbar region with discogenic back pain only (principal)
CPT/HCPCS: 72110

== ENCOUNTER 2025-01-09 01:28 | Outpatient (CLI) | payer OTHER, SELFPAY ==
--- NOTE | 2025-01-09 10:45 | DI.RAD_ITS ---
Exam(s) XR CERVICAL SPINE COMP 4-5V EXAM: XR CERVICAL SPINE COMP 4-5V CLINICAL HISTORY: continued pain, obvious muscle spasm, NECK PAIN, M54.2, CERVICALGIA. TECHNIQUE: 2D digital imaging was performed. COMPARISON: No exams were available for comparison FINDINGS: Six views No evidence of fracture, listhesis, nor offset of the spinal laminar line. No prevertebral soft tissue swelling. There is mild disc space narrowing at C 5-6. Small Luschka joint osteophyte noted bilaterally at this level. Other disc spaces exhibit normal height. Bone density normal. No osseous lesions. There are no cervical ribs. IMPRESSION: There is evidence of some degenerative disc disease at C5-6 level. DATA REPOSITORY: RADIATION DOSE DELIVERED:
== END 2025-01-09 01:48 ==
LOC: DI 01-10 01:28
PROVIDERS: PCP Nurse Practitioner Family; Visit Provider Nurse Practitioner Family
DX: M54.2 Cervicalgia (principal)
CPT/HCPCS: 72050

== ENCOUNTER 2025-02-01 14:37 | Outpatient (CLI) | payer OTHER, SELFPAY ==
--- NOTE | 2025-02-01 14:30 | RT.EKG_ITS ---
APPROVED REPORT Exam: Resting ECG Reason for Exam: lightheaded Patient Location: O HR:57 bpm ECG Measurements Heart Rate 57 AXIS TN 145 P 42 QRSd 90 QRS 47 QT 426 T 52 QTc 415 Conclusion Sinus rhythm...normal P axis, V-rate 50- 99 Ventricular premature complex...V complex w/ short R-R interval Otherwise normal ECG
== END 2025-02-01 14:38 | disposition home or self-care (01) ==
PROVIDERS: PCP Nurse Practitioner Family; Visit Provider Nurse Practitioner Family
DX: R42 Dizziness and giddiness (principal); R06.02 Shortness of breath
CPT/HCPCS: 93010

== ENCOUNTER 2025-02-02 00:42 | Outpatient (CLI) | payer OTHER, SELFPAY ==
[2025-02-02 14:40] LABS: Abs Immature Grans 0.04 10^3/uL (0.0-0.06); HCT 46.7 % (40.0-50.0); HGB 15.5 g/dL (13.5-17.5); Immature Grans % 0.4 %; MCH 29.7 pg (27.0-33.0); MCHC 33.2 % (32.0-36.0); MCV 90 fL (80-95); MPV 11.0 fL (8.0-11.0); Platelet Count 220 10^3/uL (130-400); RBC 5.22 10^6/uL (4.36-5.78); RDW 12.8 % (11.8-14.1); RDW-SD 41.9 fL; WBC 10.28 10^3/uL (4.4-10.8)
[2025-02-02 14:54] LABS: ALT 76 U/L (16-63); AST 33 U/L (15-37); Albumin 4.2 g/dL (3.4-5.0); Alkaline Phosphatase 133 U/L (46-116); Anion Gap 7.5 mmol/L (3-11); BUN 13 mg/dL (7-18); Bilirubin, Total 0.4 mg/dL (0.2-1.0); CO2 29.5 mmol/L (21.0-32.0); Calcium 9.4 mg/dL (8.5-10.1); Chloride 102 mmol/L (98-107); Estimated GFR 108.68 (mL/min/1.73m2); Glucose 129 mg/dL (74-106); Potassium 4.4 mmol/L (3.5-5.1); Sodium 139 mmol/L (136-145); Total Protein 7.5 g/dL (6.4-8.2)
== END 2025-02-02 00:43 | disposition home or self-care (01) ==
LOC: LOS 00:43
PROVIDERS: PCP Nurse Practitioner Family; Visit Provider Nurse Practitioner Family
DX: R06.02 Shortness of breath (principal)
CPT/HCPCS: 36415; 80053; 85025

== ENCOUNTER 2025-02-02 03:21 | Outpatient (CLI) | payer OTHER, SELFPAY ==
--- NOTE | 2025-02-02 06:00 | DI.RAD_ITS ---
Exam(s) XR CHEST 2V PA LATERAL EXAM: XR CHEST 2V PA LATERAL CLINICAL HISTORY: SOB,r06.02 TECHNIQUE: 2D digital imaging was performed of the chest. Two images were obtained. PA and lateral views were obtained. COMPARISON: CR ABD FLAT UPRIGHT PA CHEST from 01/23/2016 FINDINGS: MEDIASTINUM: Normal. HEART: Normal. PULMONARY VASCULATURE: Normal. LUNGS: Clear. PLEURAL SPACE: No pleural effusion or pneumothorax. BONE:Within normal limits for the patient's age. OTHER FINDINGS:Normal. IMPRESSION: No acute pulmonary findings. DATA REPOSITORY: RADIATION DOSE DELIVERED:
== END 2025-02-02 03:41 ==
LOC: DI 03:21
PROVIDERS: PCP Nurse Practitioner Family; Visit Provider Nurse Practitioner Family
DX: R06.02 Shortness of breath (principal)
CPT/HCPCS: 71046

== ENCOUNTER 2025-02-07 00:14 | Outpatient (CLI) | payer OTHER, SELFPAY ==
--- NOTE | 2025-02-07 12:45 | DI.MRI_ITS ---
Exam(s) MR CERVICAL SPINE WO EXAM: MR CERVICAL SPINE WO CLINICAL HISTORY: cervical radiculopathy,m54.12 TECHNIQUE: Multiplanar multisequence MRI of the cervical spine was performed without intravenous contrast. COMPARISON: CT HEAD WITHOUT CONTRAST from 10/11/2007 CR XR CERVICAL SPINE COMP 4-5V from 01/09/2025 FINDINGS: BONES: Vertebral body heights are maintained. Intervertebral disc spaces are normal. Alignment is normal. Bone marrow signal intensity is within normal limits. CERVICAL CORD: Craniovertebral junction is unremarkable. The cervical cord is normal size and signal intensity. SOFT TISSUES: Unremarkable. C2-3: No disc herniation or bulge is identified. No significant central spinal canal or neural foraminal stenosis. C3-4: No disc herniation or bulge is identified. No significant central spinal canal or neural foraminal stenosis C4-5: No disc herniation or bulge is identified. No significant central spinal canal or neural foraminal stenosis C5-6: There is mild prominence of the osteophyte disc complex. There is extension into the neural foramen bilaterally. This causes mild bilateral neural foraminal stenosis. There is no significant central spinal canal stenosis. C6-7: No disc herniation or bulge is identified. No significant central spinal canal or neural foraminal stenosis C7-T1: No disc herniation or bulge is identified. No significant central spinal canal or neural foraminal stenosis IMPRESSION: Degenerative changes at C5-C6 causing mild bilateral neural foraminal stenosis. DATA REPOSITORY:
== END 2025-02-07 00:34 ==
LOC: DI 00:14
PROVIDERS: PCP Nurse Practitioner Family; Visit Provider Nurse Practitioner Family
DX: M54.12 Radiculopathy, cervical region (principal); M50.322 Other cervical disc degeneration at C5-C6 level
CPT/HCPCS: 72141

== ENCOUNTER 2025-02-12 10:35 | Outpatient (CLI) | payer OTHER, SELFPAY ==
--- NOTE | 2025-02-12 09:45 | DI.RAD_ITS ---
Exam(s) XR HIP LT COMPLETE AP PELVIS EXAM: XR HIP LT COMPLETE AP PELVIS CLINICAL HISTORY: L HIP PAIN. TECHNIQUE: 2D digital imaging was performed. Two images were obtained. AP pelvis and lateral left hip views were obtained. COMPARISON: CR XR HIP LT COMPLETE AP PELVIS from 06/03/2023 FINDINGS: BONES: There are postsurgical changes of a left total hip arthroplasty. There is increased lucency around the femoral stem component proximally. No fracture or dislocation. JOINTS: The right hip is well maintained. The acetabular component appears within normal limits. The sacroiliac joints and symphysis pubis are unremarkable. SOFT TISSUE: Normal. IMPRESSION: Increased lucency around the femoral component of the prosthesis suspicious for loosening. DATA REPOSITORY: RADIATION DOSE DELIVERED:
== END 2025-02-12 10:36 | disposition home or self-care (01) ==
LOC: DIORS 10:35
PROVIDERS: PCP Nurse Practitioner Family; Visit Provider Student in an Organized Health Care Education/Training Program
DX: Z96.642 Presence of left artificial hip joint (principal); T84.031A Mechanical loosening of internal left hip prosthetic joint, initial encounter
CPT/HCPCS: 73502

== ENCOUNTER 2025-02-21 01:01 | Outpatient (CLI) | payer OTHER, SELFPAY ==
--- NOTE | 2025-02-21 06:15 | DI.NM_ITS ---
Exam(s) NM BONE SCAN 3 PHASE EXAM: OK BONE SCAN 3 PHASE CLINICAL HISTORY: PAIN, ?LOOSENING prosthetic device,t84.84xa. TECHNIQUE: Injected Dose: 25 mCi Tc-99m MDP COMPARISON: CR XR HIP LT COMPLETE AP PELVIS from 02/12/2025 FINDINGS: Perfusion phase: Symmetric. No abnormal radiopharmaceutical uptake in either hip. Blood Pool images: Symmetric. No abnormal radiopharmaceutical uptake in either hip. Delayed images: There is mild focal increased uptake of radiopharmaceutical in the proximal anterior left femur at approximately the level of the inferior tip of the of the femoral component of the prosthesis. There is no abnormal uptake in the region of the acetabulum. Remainder of the skeleton appears unremarkable with the exception of some focal increased uptake at the 1st costochondral rib junction which is most probably degenerative. IMPRESSION: 1. There is very mild increased focal uptake seen in the subtrochanteric region of the left femur at approximately the level of the inferior tip of the femoral stem prosthesis. This may indicate subtle loosening at this level. This is only seen on the delayed images. There is no abnormal uptake seen around the acetabular cup component. DATA REPOSITORY:
--- NOTE | 2025-02-21 06:15 | DI.CT_ITS ---
Exam(s) CT LOWER EXTREMITY LT WO EXAM: CT LOWER EXTREMITY LT WO CLINICAL HISTORY: pain, ? loosening prosthetic device, t84.84xa,. TECHNIQUE: Imaging Protocol: Axial computed tomography images with coronal and sagittal reformatted images were created and reviewed. CONTRAST MATERIAL: Intravenous: None COMPARISON: CR XR HIP LT COMPLETE AP PELVIS from 02/12/2025 FINDINGS: OSSEOUS: Left hip prosthesis appears well seated with no evidence of loosening. There are no fractures evident. No osseous lesions. No evidence of osteomyelitis. IMPRESSION: No evidence of fracture or obvious loosening of the prosthesis RADIATION DOSE DELIVERED: 247.4mGy.cm Total DLP DATA REPOSITORY: All CT scans at this facility are submitted to the National Radiology Data Registry (NRDR) Dose Index Registry (DIR) with the [employer] ([employer]). RADIATION OPTIMIZATION: All CT scans at this facility use at least one of these dose optimization techniques: automated exposure control; mA and/or kV adjustment per patient size (includes targeted exams where dose is matched to clinical indication); or iterative reconstruction.
[2025-02-21 08:13] LABS: ESR 2 mm/hr (0-15)
[2025-02-21 08:40] LABS: C-Reactive Protein < 0.50 mg/dL (<or=0.5)
== END 2025-02-21 01:21 ==
PROVIDERS: PCP Nurse Practitioner Family; Visit Provider Student in an Organized Health Care Education/Training Program
DX: T84.84XA Pain due to internal orthopedic prosthetic devices, implants and grafts, initial encounter (principal)
CPT/HCPCS: 85652; 73700; 78315; 86140

== ENCOUNTER 2025-03-12 10:43 | Outpatient (CLI) | payer OTHER, SELFPAY ==
[2025-03-12 10:48] VITALS: BP 120/89; PULSE 83; RESP 20; TEMP 37; O2SAT 97
[2025-03-12 11:09] VITALS: PULSE 70; O2SAT 96
[2025-03-12 11:10] VITALS: PULSE 77; O2SAT 96
--- NOTE | 2025-03-12 11:18 | DI.RAD_ITS ---
Exam(s) XR PAIN CLINIC CERVICAL SP 2V EXAM: XR PAIN CLINIC CERVICAL SP 2V CLINICAL HISTORY: DX: Cervical Radiculopathy. TECHNIQUE: Fluoroscopy was provided for the referring physician for guidance with performing pain clinic injection procedure. COMPARISON: No exams were available for comparison FINDINGS: Please see procedure note for details. Fluoro time: 17.6 seconds RADIATION DOSE DELIVERED: Ka,r=1.6 mGy
[2025-03-12 11:20] VITALS: PULSE 71; O2SAT 96
[2025-03-12] MEDS: Epidural Tray 1 EACH MC (11:26)
[2025-03-12] MEDS: Omnipaque 240 MG/ML 50 ML BTL IJ (11:26)
--- NOTE | 2025-03-12 11:26 | PDOC.PAIN ---
Date of service: 03/12/25 Time of Service: 11:29 Pain Managment Procedure Note Procedure Note Procedure Note: CERVICAL EPIDURAL STEROID INJECTION ? Pre-procedure Diagnosis: M54.12- Radiculopathy, cervical region ? Post-procedure Diagnosis:? The same as above ? Sedation:? ? none ? Medication: Depo-Medrol 80 mg, Omnipaque 1 mL ? Estimated blood loss:? less than 2 ml ? Surgeon:? Lamberto Osborn MD Comment: ? Procedure Detail:? The procedure and potential risks were explained to the patient and informed written consent was obtained. The patient was escorted to the procedure room and placed in the prone position. Pillows were utilized for proper positioning and comfort. Time out was performed in the procedure room with nursing staff confirming the patient's identity, procedure to be performed, allergies, and any blood thinning or anti-platelet medications.? The patient's neck and upper back was prepped with ChloraPrep and draped in a sterile fashion. Sterile technique was maintained throughout the procedure.? Sterile gloves were used, a face mask was worn, and new single dose vials of all medications were used with the top being swabbed with alcohol and given time to dry prior to withdrawal of medication. Lidocaine 1% was used to anesthetize the skin. Using a 25-gauge 1.5 inch needle, 1% lidocaine was instilled into the superficial soft tissue overlying the targeted area to provide local anesthesia. With fluoroscopic guidance, a 17 -gauge Tuohy needle was advanced toward the interlaminar space of C7-T1. The needle was then advance through the ligamentum flavum and into the posterior epidural space using the loss of resistance technique. Correct needle placement was confirmed through review of the AP and contralateral oblique fluoroscopic views. A 19-gauge Arrow catheter was threaded cephalad to the Left C5-6 Following negative aspiration, 1 ml of Omnipaque 240 contrast was injected which confirmed good flow throughout the epidural space and no evidence of vascular flow or flow into adjacent compartments. Next, following negative aspiration, 1 ml of normal saline and 80mg of Depo-Medrol was injected. The needle and catheter were gently removed intact. The patient tolerated the procedure well and was transported to the recovery area for observation and discharge instructions. Permanent images saved and recorded. Plan:? Follow up PRN. PAIN PRE PROCEDURE 08/03 POST PROCEDURE 06/05 COMMENT: Could repeat if needed and gets good relief from this. I encouraged the patient to do physical therapy. He has a pending visit with Dr. Sigifredo george and nerve testing Coding Conscious Sedation used for procedure: No CPT Codes: Inj Spine C/T w/Imaging - 23595 ([id number] ~G) Additional Codes: Date of Service () Diagnoses: M54.12- Radiculopathy, cervical region
[2025-03-12] MEDS: methylPREDNISolone ACETATE 40 MG/ML VIAL IJ (11:27)
== END 2025-03-12 10:44 | disposition home or self-care (01) ==
LOC: PC 10:43
PROVIDERS: PCP Nurse Practitioner Family; Visit Provider Anesthesiology Pain Medicine
DX: M54.12 Radiculopathy, cervical region (principal)
CPT/HCPCS: 62321; 72040; J1010; Q9967

== ENCOUNTER → 2025-04-11 09:27 | Outpatient (CLI) | payer OTHER, SELFPAY ==
--- NOTE | 2025-04-11 09:15 | DI.RAD_ITS ---
Exam(s) XR SHOULDER LT COMPLETE 2+V EXAM: XR SHOULDER LT COMPLETE 2+V CLINICAL HISTORY: M25.512 LT shoulder pain. TECHNIQUE: 2D digital imaging was performed. Four views. COMPARISON: No exams were available for comparison FINDINGS: BONES: No acute fracture is present. No bony destructive lesion is seen. JOINTS: No dislocation present. The acromioclavicular joint is not widened. No significant degenerative changes. SOFT TISSUE: Normal. IMPRESSION: Unremarkable radiographs of the left shoulder. DATA REPOSITORY: RADIATION DOSE DELIVERED:
== END ==
LOC: DI 09:27
PROVIDERS: PCP Nurse Practitioner Family; Visit Provider Anesthesiology Pain Medicine
DX: M25.512 Pain in left shoulder (principal)
CPT/HCPCS: 73030